=== PATIENT | female | born 1995 | race Two or more races ===

== ENCOUNTER 2016-08-26 21:53 | Emergency (ER) | payer MEDICAID ==
[~2016-08-26] VITALS: Ht 162.6 cm; Wt 107.5 kg
[2016-08-26 21:55] VITALS: BP 127/70
[2016-08-26] MEDS ORDERED: DEXAMETHASONE SOD PHOSPHATE 10 MG/ML VIAL ONE (22:21)
[2016-08-26] MEDS ORDERED: ACETAMINOPHEN ES 500 MG TABLET ONE (22:21)
[2016-08-26] MEDS ORDERED: DEXAMETHASONE SOD PHOSPHATE 4 MG/ML VIAL IM ONE (22:30)
[2016-08-26] MEDS ORDERED: ACETAMINOPHEN 325 MG TABLET PO ONE (22:30)
== END 2016-08-26 22:35 | disposition home or self-care (01) ==
LOC: ER 21:53
DX: J02.9 Acute pharyngitis, unspecified (principal)
CPT/HCPCS: 90471; 99283; A4606; J1100; Z7610

== ENCOUNTER 2018-06-30 19:31 | Emergency (ER) | payer MEDICAID, OTHER ==
[~2018-06-30] VITALS: Ht 162.6 cm; Wt 93.0 kg
[2018-06-30 20:00] VITALS: BP 121/68
[2018-06-30] MEDS ORDERED: PENICILLIN G BENZATHINE 2.4 MMU/4 ML ML IM ONE ×2 (20:15→20:30)
== END 2018-06-30 20:36 | disposition home or self-care (01) ==
LOC: ER 19:34
DX: J02.9 Acute pharyngitis, unspecified (principal); N89.8 Other specified noninflammatory disorders of vagina
CPT/HCPCS: 96372; 99283; A4606; J0558

== ENCOUNTER 2023-01-16 23:35 | Emergency (ER) | payer OTHER ==
[~2023-01-16] VITALS: Ht 162.6 cm; Wt 72.1 kg
[2023-01-17 00:26] LABS: APPEARANCE,URINE CLOUDY (CLEAR); BILIRUBIN,URINE NEGATIVE (NEGATIVE); BLOOD, URINE NEGATIVE Ery/uL (NEGATIVE); COLOR,URINE YELLOW (YELLOW); KETONES,URINE NEGATIVE (NEGATIVE); LEUKOCYTE ESTERASE ,URINE NEGATIVE (NEGATIVE); NITRITE, URINE NEGATIVE (NEGATIVE); PREGNANCY TEST URINE QUAL NEGATIVE (NEGATIVE); PROTEIN,URINE NEGATIVE (NEGATIVE); UGLUCOSE NEGATIVE (NEGATIVE)
[2023-01-17 00:38] LABS: BASOPHILS % (AUTO) 0.7 % (0.0-2.0); EOSINOPHILS # (AUTO) 0.1 K/uL (0.0-0.7); EOSINOPHILS % (AUTO) 1.2 % (0.0-6.0); HEMATOCRIT 33 % (33-45); HEMOGLOBIN 10.8 g/dL (11.5-14.8); LYMPHOCYTES # (AUTO) 2.1 K/uL (0.8-4.8); LYMPHOCYTES % (AUTO) 33.9 % (20.0-44.0); MEAN CORPUSCULAR HEMOGLOBIN 26 PG (26.0-33.0); MEAN CORPUSCULAR HGB CONC 33 g/dl (31.0-36.0); MEAN CORPUSCULAR VOLUME 79 fL (82-100); MONOCYTES # (AUTO) 0.5 K/uL (0.1-1.30); MONOCYTES % (AUTO) 8.1 % (2.0-12.0); NEUTROPHILS # (AUTO) 3.4 K/uL (1.8-8.9); NEUTROPHILS % (AUTO) 56.1 % (43.0-81.0); PLATELET COUNT (AUTO) 244 K/uL (150-450); RED BLOOD CELL COUNT(AUTO) 4.18 MIL/uL (4.0-5.2); RED CELL DISTRIBUTION WIDTH 15.5 % (11.5-15.0); WHITE BLOOD COUNT (AUTO) 6.1 K/uL (4.3-11.0)
[2023-01-17 01:11] LABS: CALCIUM, SERUM 9.1 mg/dL (8.5-10.1); CREATININE 0.6 mg/dL (0.6-1.3); POTASSIUM 3.9 mmol/L (3.5-5.1)
[2023-01-17 01:19] LABS: ALBUMIN 3.9 g/dL (3.4-5.0); BILIRUBIN,DIRECT 0.2 mg/dL (0.0-0.2); TOTAL PROTEIN, SERUM 6.8 g/dL (6.4-8.2)
[2023-01-17] MEDS ORDERED: IBUP-1955 PO (01:56)
[2023-01-17] MEDS ORDERED: IBUPROFEN 600 MG TABLET ONE (01:57)
[2023-01-17] MEDS ORDERED: IBUPROFEN 600 MG TABLET PO ONE (02:00)
[2023-01-17 02:01] VITALS: BP 125/74; TEMP 98.2; O2SAT 98
== END 2023-01-17 02:01 | disposition home or self-care (01) ==
LOC: ER 23:39
DX: R10.2 Pelvic and perineal pain (principal)
CPT/HCPCS: 36415; 76856-TC; 80048-TC; 80076-TC; 84703-TC; 85025-TC